=== PATIENT | male | born 1980 | race Caucasian/White ===

== ENCOUNTER 2018-02-14 05:50 | Day surgery (SDC) | payer OTHER ==
[~2018-02-14] VITALS: Ht 177.8 cm; Wt 113.4 kg
[~2018-02-14 05:50] MED LIST: CETIRIZINE HCL10 MG PO; FLONASE ALLERG9.9 ML NAS; PRILOSEC OTC20 MG PO; PROAIR HFA8.5 GM INH; QVAR8.7 G1 INH
--- NOTE | 2018-02-14 08:59 | NUR ---
02/14/18 0859 Cammy Everett 0850-PATIENT ARRIVED TO PACU ON 8L MASK O2 SAT 100% [employer]PRES[employer]IVE HOLDING AIRWAY. 3 LAP SITES TO ABDOMEN. PATIENT WAS WEANED TO 6L AND DESATTED TO 87% WHILE RN HOLDING AIRWAY. O2 INCREASED BACK TO 8L MASK 100% 0856-PATIENT OPENING EYES TO VERBAL STIMULI DOZES BACK TO SLEEP. 8L MASK O2 SAT 100% REPORTS "WANNA GO HOME AND GO TO BED" PATIENT ORIENTED TO SITUATION. ICE TO ABDOMEN
--- NOTE | 2018-02-14 11:04 | NUR ---
PT ASLEEP WHEN RN ENTERS THE ROOM HE WAKES EASILY. PT REPORTS BEING "SLEEPY". SPOUSE REMAINS @ BS. CRACKERS GIVEN. PT IS EATING THOSE AND TOLERATING THEM WELL.
--- NOTE | 2018-02-14 13:33 | NUR ---
LE 1215: DC INSTRUCTIONS GIVEN IN PRESENCE OF SPOUSE AND BOTH VERBALIZE UNDERSTANDING. PT DRESSES SELF IN PRESENCE OF SPOUSE AND TRANSFERS HIMSELF TO THE WC AND TOLERATES THAT WELL.
--- NOTE | 2018-02-14 15:52 | OR ---
[facility] [address], [place] [address] Signed DATE OF OPERATION: 02/14/2018 SURGEON: Nathaniel Cisneros MD PREOPERATIVE DIAGNOSES: 1. Chronic cholecystitis. 2. Biliary dyskinesia. POSTOPERATIVE DIAGNOSES: 1. Chronic cholecystitis. 2. Biliary dyskinesia. PROCEDURE: Laparoscopic cholecystectomy with intraoperative cholangiogram. ESTIMATED BLOOD LOSS: None. FINDINGS: The intraoperative cholangiogram was unremarkable. INDICATIONS: Sarah Beth is a 38-year-old gentleman who over the last 3 months has had right upper quadrant abdominal pain and pressure. He said it is worse after meals. He had been to his primary care provider. Ultrasound was unremarkable. HIDA scan showed his ejection fraction low at 12%. The injection of the CCK reproduced his symptoms. He said he was miserable for several days. Consequently, he was asked to see me as a general surgeon. In the office, I gave him a booklet on the gallbladder. We have discussed the location and function of the gallbladder. We have discussed laparoscopic versus open cholecystectomy. He understands expected intraop and postop course. There is risk to surgery including, but not limited to bleeding, infection, scarring, change in contour of the skin, damage to bowel, damage to main bile duct, incisional hernias and other unforeseen comorbidities. He had expressed understanding and wished to proceed. PROCEDURE NOTE: Sarah Beth was taken in the operating room and placed in the supine position under general endotracheal tube anesthesia. He was given preoperative antibiotics along with subcutaneous heparin. SCDs were utilized. He was then prepped and draped in the usual sterile fashion. All trocars were placed in usual positions under direct visualization of camera without difficulty. The gallbladder was grasped and elevated in the right Electronically Signed By: NATHANIEL CISNEROS MD 02/14/18 1552 PATIENT NAME: SARAH BETH SULLIVAN OPERATIVE REPORT DATE OF : 80 REPORT #: [id number] PHYSICIAN: NATHANIEL CISNEROS MD PCP: MIRNA NIÑO REPORT IS CONFIDENTIAL AND NOT TO BE RELEASED WITHOUT AUTHORIZATION [facility] [address], [place] [address] Signed upper quadrant. The surrounding omentum was taken down bluntly and with the help of the cautery. The triangle of Calot was dissected free and a clip was placed on the cystic artery and it was divided. We then placed the cholangiocatheter into the cystic duct. The intraoperative cholangiogram was unremarkable. The cystic duct stump was secured with 3 sequential clips. After this, the gallbladder was removed from the gallbladder fossa with the help of the cautery and placed into an EndoCatch bag. The right upper quadrant was irrigated and suctioned out until clear. We used our laparoscopic suturing device to pass 0 Vicryl suture on either side of the fascia of the subxiphoid trocar site. This was tied down to close this fascia primarily. After this, the gas was allowed to escape and all the trocars removed along with the gallbladder. The gallbladder was opened on the back table and pictures were taken throughout for photodocumentation. We closed the fascia of the supraumbilical trocar site with interrupted figure-of-8 and simple 0 Vicryl sutures. Local anesthetic was injected into all trocar sites. Each trocar site was irrigated and suctioned out until clear. The skin and the dermis of each trocar site were closed with interrupted 3-0 subcuticular Monocryl sutures. Dry gauze and tape were applied to all incisions. Sarah Beth was then awakened from his anesthesia, extubated in the OR, and taken to recovery room in stable condition. Nathaniel Cisneros MD ALB/MODL /[id number] cc: MD Mirna Alvarado PA Copies: NATHANIEL CISNEROS MD, LINDA PA ~ Electronically Signed By: NATHANIEL CISNEROS MD 02/14/18 1552 PATIENT NAME: SARAH BETH SULLIVAN OPERATIVE REPORT DATE OF : 80 REPORT #: [id number] PHYSICIAN: NATHANIEL CISNEROS MD PCP: MIRNA NIÑO REPORT IS CONFIDENTIAL AND NOT TO BE RELEASED WITHOUT AUTHORIZATION
== END 2018-02-14 12:11 | disposition home or self-care (01) ==
LOC: DS 05:50
PROVIDERS: Colon & Rectal Surgery
PROC: BF13YZZ Fluoroscopy of Gallbladder and Bile Ducts using Other Contrast (ICD-10-PCS; 2018-02-14)
PROC: 0FT44ZZ Resection of Gallbladder, Percutaneous Endoscopic Approach (ICD-10-PCS; principal; 2018-02-14 06:45)
DX: K81.1 Chronic cholecystitis (principal); K82.8 Other specified diseases of gallbladder; K59.00 Constipation, unspecified; J45.909 Unspecified asthma, uncomplicated; K21.0 Gastro-esophageal reflux disease with esophagitis; Z79.51 Long term (current) use of inhaled steroids; Z79.899 Other long term (current) drug therapy
CPT/HCPCS: 00790; 74300; J0330; J0694; J1100; J1170; J1644; J1885; J2250; J2405; J2704; J3010; J7120; Q9967

== ENCOUNTER 2018-02-23 12:21 | Emergency (ER) | payer OTHER ==
[~2018-02-23] VITALS: Ht 177.8 cm; Wt 113.4 kg
[2018-02-23] MEDS ORDERED: NORCO 5-325 TA1 EACH PO (13:46)
[2018-02-23] MEDS ORDERED: CLEOCIN HCL300 MG PO (13:46)
== END 2018-02-23 14:09 | disposition home or self-care (01) ==
LOC: ED 12:21
PROC: 0H94XZZ Drainage of Neck Skin, External Approach (ICD-10-PCS; principal; 2018-02-23)
DX: L02.11 Cutaneous abscess of neck (principal); Z23 Encounter for immunization; Z79.899 Other long term (current) drug therapy
CPT/HCPCS: 10060; 87070; 87077; 87186; 90471; 90715; 99283

== ENCOUNTER 2018-02-25 08:03 | Emergency (ER) | payer OTHER ==
[~2018-02-25] VITALS: Ht 177.8 cm; Wt 113.4 kg
[~2018-02-25 08:03] MED LIST changes: +CLEOCIN HCL300 MG PO; +NORCO 5-325 TA1 EACH PO
== END 2018-02-25 08:23 | disposition home or self-care (01) ==
LOC: ED 08:03
DX: L72.3 Sebaceous cyst (principal); B96.89 Other specified bacterial agents as the cause of diseases classified elsewhere
CPT/HCPCS: 99282

== ENCOUNTER 2023-08-25 19:27 | Emergency (ER) | payer OTHER ==
[~2023-08-25] VITALS: Ht 177.8 cm; Wt 113.4 kg
[2023-08-25] MEDS ORDERED: HYDROCODON-ACE1 EA10 PO (22:35)
[2023-08-25 23:40] VITALS: BP 127/75
== END 2023-08-25 23:40 | disposition home or self-care (01) ==
LOC: ED 19:27
DX: S82.391A Other fracture of lower end of right tibia, initial encounter for closed fracture (principal); S82.51XA Displaced fracture of medial malleolus of right tibia, initial encounter for closed fracture; X50.1XXA Overexertion from prolonged static or awkward postures, initial encounter; Y93.66 Activity, soccer; Z79.51 Long term (current) use of inhaled steroids; Z79.899 Other long term (current) drug therapy
CPT/HCPCS: 29515; 73610; 73700; 99284-25; A9270; J1885